=== PATIENT | female | born 1950 ===

== ENCOUNTER 2022-12-14 06:10 | Day surgery (SDC) | payer OTHER ==
[2022-12-08 16:46] LABS: INR 1.08; PROTHROMBIN TIME 11.3 SECONDS (9.0-11.5)
[~2022-12-14 06:10] MED LIST: CARAFATE1 GM/10 ML PO; LIPITOR20 MG PO; PEPCID AC20 MG PO
== END 2022-12-14 18:50 | disposition home or self-care (01) ==
LOC: CIR.AMB 06:10
PROVIDERS: ATTEND Colon & Rectal Surgery
DX: K60.3 Anal fistula (principal); K60.5 Anorectal fistula; Z20.822 Contact with and (suspected) exposure to COVID-19